=== PATIENT | female | born 1995 | race Caucasian/White ===

== ENCOUNTER 2020-10-02 11:19 | Inpatient (IN) ==
[2020-10-02] MEDS ORDERED: OXYTOCIN 30 UNITS/500 ML BAG IV PRN ×2 (11:41→13:09)
[2020-10-02 12:06] LABS: Hematocrit (blood only) 38.1 % (37-47); Hemoglobin 13.3 g/dL (12.0-16.0); Mean Corpuscular Hemoglobin 31.1 pg (25-34); Mean Corpuscular Hgb Conc 34.9 g/dL (32-36); Mean Corpuscular Volume 89.2 fL (80-100); Mean Platelet Volume 12.2 fL (7.4-10.4); Platelet Count 182 K/uL (130-400); RDW Coefficient of Variation 12.6 % (11.5-14.5); RDW Standard Deviation 40.9 fL (36.4-46.3); Red Blood Count 4.27 M/uL (4.2-5.4); White Blood Count 7.31 K/uL (4.8-10.8)
[2020-10-02] MEDS: LACTATED RINGER'S 1,000 ML IV PRN ×2 (13:12→20:19)
--- NOTE | 2020-10-02 13:15 | History & Physical Report ---
Date of Service October 02, 2020 Assessment & Plan (1) Pruritus of in third trimester: 25 y/o at 39 3/7 wga presents for IOL for suspected cholestasis VSS Fetus cat 1 Labor - Reviewed indication and plan for induction. Discussed galicia bulb to start induction, verbally consented for procedure and pt agreeable. 40cc galicia placed without difficulty, will start pit up to 10 while galicia is in. GBS neg Epidural PRN Admission and Anticipated Discharge Date Admission Date: October 02, 2020 History of Present Illness Chief Complaint: IOL for suspected cholestasis Primary Care Provider: Ebony Archuleta, DO 25 y/o at 39 3/7 w/ PERFECTO 10/06 by 1st tri US who presents for IOL for suspected cholestasis. Called in yesterday w/ c/o itching of palms/soles for few days. Yesterday Had LFTs drawn that showed AST was mildly elevated, ALT was wnl, BA are pending, NST was reactive yesterday as well. As BA can take up to a week to return and given GA, plan was to repeat LFTs this AM. This morning, AST continued to increase, continues to have itching. 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 Menarche 13, cycles q35d Denies hx STIs Denies hx abnl pap, last 05/2019 neg cytology Allergies Allergy/AdvReac Type Severity Reaction Status Date / Time No Known Allergies Allergy Verified 10/02/20 10:35 Home Medications Medication Instructions Recorded Confirmed Type PNV cmb#95-ferrous fumarate-FA 1 tab PO DAILY 12/26/19 10/02/20 History [] Patient History Medical History Anemia Varicella vaccination Surgical History No pertinent past surgical history Family History Grandmother (Paternal) Thyroid disease Mother No pertinent family history Father Diabetes Hypertension Denies family history of Ovarian cancer Breast cancer Colorectal cancer Social History Smoking Status: Never smoker Hx Alcohol Use: No Hx Substance Use: No Preferred Language: Sinhala Communication Ability: Effective Interchange Agent Required: No Beliefs That Will Affect Care: None marital status: marital status details: Dave Jensen (24) [phone] Current Living Situation: Spouse Current Living Situation Comment: lives with spouse, no pets current occupational status: student 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 [employer] Feels Safe at Home: Yes Safety Concerns: Feels Safe At This Time Assistive Devices: None Physical Exam Constitutional: WD/WN, vitals as above Respiratory: normal respiratory effort; no respiratory distress and no labored breathing Psychiatric: A+Ox3, euthymic affect Genitourinary: OB Exam Abdomen: + vertex (confirmed by US) and + estimated weight (6-7lb) Manual OB Exam: + cervical dilation fingertip, + cervical effacement 50% and + station high OB Exam Monitor Tracing: + external FHT monitor used, + external uterine monitor used (irregular ctx) and + category I (125/mod/+accel/-decel) Results & Data ([facility]) Vital Signs (Past 12 Hours) Vital Signs Temp Pulse Resp BP 10/02/20 11:52 98.2 F 71 20 118/81 10/02/20 11:32 71 118/81 10/02/20 11:30 98.2 F 20 Laboratory Results OB Labs: Blood Type AB Positive 03/02/20 Antibody Screen NEGATIVE 03/02/20 Hemoglobin 12.7 g/dL (12.0-16.0) 07/14/20 Hematocrit 37.9 % (37-47) 07/14/20 Mean Corpuscular Volume 86.2 fL (80-100) 03/02/20 Platelet Count 220 K/uL (130-400) 03/02/20 Rubella IgG Antibody Immune (Immune) 03/02/20 Rapid Plasma Reagin Nonreactive (Nonreactive) 03/02/20 Hepatitis B Surface Antigen Neg (Neg) 03/02/20 HIV (1&2) Ab and P24 Ag, 4th Gener Neg (Neg) 03/02/20 Glucose 1 Hour 50 gm Load 138 mg/dl (70-130) H 07/14/20 OB Optional Labs: Chlamydia trachomatis RNA NOT DETECTED (NOT DETECTED) 03/02/20 Neisseria gonorrhoeae RNA NOT DETECTED (NOT DETECTED) 03/02/20 Labs Reviewed: declined cf/sma--akh low risk cfDNA declines AFP GBS neg COVID neg Diagnostic Findings Ant placenta Code Status & VTE Plan VTE Prophylaxis Plan VTE Prophylaxis will be ordered: Yes Coding Level of Care Code None Diagnoses Pruritus of in third trimester O99.713; L29.9
[2020-10-02] MEDS ORDERED: ePHEDrine sulfate 50 MG/ML AMP ONE (20:22)
[2020-10-02] MEDS ORDERED: BUPIVACAINE 0.25% 30 ML VIAL ONE ×2 (20:22→22:15)
[2020-10-02] MEDS ORDERED: SODIUM CHLORIDE 0.9% INJ 10 ML VIAL ONE (20:22)
[2020-10-02] MEDS ORDERED: fentaNYL citrate 100 MCG/2 ML VIAL ONE (20:22)
[2020-10-02] MEDS ORDERED: fentaNYL 2MCG/ML ROPIVACAINE 1.25MG/ML 100 ML BAG EPI ONE (20:23)
--- NOTE | 2020-10-02 20:31 | Labor Progress Brief Note ---
Date of Service October 02, 2020 Assessment & Plan (1) Pruritus of in third trimester: 25 y/o at 39 3/7 wga presents for IOL for suspected cholestasis VSS Fetus cat 1 Labor - Olmos bulb was sitting in vagina and removed, exam demonstrates good progress. Pit at 10, tito well. Plan to arom after epidural GBS neg Epidural desired Admission and Anticipated Discharge Date Admission Date: October 02, 2020 Physical Exam Genitourinary: Manual OB Exam: + cervical dilation (4-5), + cervical effacement 70% and + station -2 OB Exam Monitor Tracing: + external FHT monitor used, + external uterine monitor used (q2-5min) and + category I (130/mod/+accel/-decel) Results & Data ([facility]) Vital Signs (Past 12 Hours) Vital Signs Temp Pulse Resp BP 10/02/20 19:54 65 130/88 10/02/20 19:30 18 10/02/20 19:03 97.9 F 18 10/02/20 19:01 57 L 123/77 10/02/20 19:00 97.9 F 18 10/02/20 18:45 69 133/82 10/02/20 16:06 56 L 119/84 10/02/20 15:02 74 20 124/89 10/02/20 14:02 61 18 104/67 10/02/20 13:13 67 124/82 10/02/20 11:52 98.2 F 71 20 118/81 10/02/20 11:32 71 118/81 10/02/20 11:30 98.2 F 20 Coding Level of Care Code None Diagnoses Pruritus of in third trimester O99.713; L29.9
--- NOTE | 2020-10-02 21:07 | Anesthesiology Consultation ---
Date of Service October 02, 2020 Assessment & Plan (1) Encounter for pre-operative examination: Chart Review Chart Review: Acceptable Risk for Labor Epidural Consults Requested none ASA ASA2 Proposed Anesthesia Anesthesia Type: Labor Epidural Risk / Benefits Reviewed With: PT / POA / Parent / Guardian, Accepts Plan and Informed Consent Obtained History Height/Weight Height: 5 ft 6 in Weight: 66.678 kg Allergies Allergy/AdvReac Type Severity Reaction Status Date / Time No Known Allergies Allergy Verified 10/02/20 10:35 Medications Home Medications Medication Instructions Recorded Confirmed Last Taken PNV cmb#95-ferrous fumarate-FA 1 tab PO DAILY 12/26/19 10/02/20 10/01/20 23:00 [] Active Medications Generic Name Dose Route Start Last Admin Trade Name Freq PRN Reason Stop Dose Admin Lactated Ringer's 1,000 mls @ 125 mls/hr 10/02/20 11:41 10/02/20 20:38 Lr IV 10/04/20 11:40 125 mls/hr .Q8H PRN Infusion L&D Protocol Protocol Oxytocin 30 units in 500 mls @ 10 mls/hr 10/02/20 13:09 10/02/20 16:00 Pitocin IV 10/04/20 13:08 0.6 units/hr .Q24H PRN 10 mls/hr Labor Induction/Augmentation Titration Protocol 0.6 UNITS/HR Past Medical History Medical History Anemia Varicella vaccination Exercise / Class Metabolic Activity II 4-5 Yardwork/Stairs/Walk up hill Past Family History Family History Grandmother (Paternal) Thyroid disease Mother No pertinent family history Father Diabetes Hypertension Denies family history of Ovarian cancer Breast cancer Colorectal cancer Past Surgical History Surgical History No pertinent past surgical history Past Anesthesia History No Hx of Anesthesia Complications and No Family Hx of Anesthesia Complications History of PONV No Hx of PONV and No Hx of Motion Sickness Social History Smoking Status: Never smoker Hx Alcohol Use: No Hx Substance Use: No Physical Exam Vital Signs Last Vital Signs Temp 98.1 F 10/02/20 20:48 Pulse 65 10/02/20 19:54 Resp 18 10/02/20 21:00 BP 130/88 10/02/20 19:54 ENMT Mouth: no dentition abnormality Thyromental Distance: > or= 3.5 Finger Breadths Mallampati Class: II Neck normal visual inspection Respiratory normal respiratory effort Auscultation: lungs clear to auscultation bilaterally Cardiovascular Rate/Rhythm: regular rate and regular rhythm Testing Laboratory Results 10/02/20 11:52
[2020-10-02] MEDS ORDERED: fentaNYL 2MCG/ML ROPIVACAINE 1.25MG/ML 100 ML BAG EPI PRN (21:24)
[2020-10-02] MEDS ORDERED: diphenhydrAMINE 50 MG/ML VIAL IV PRN (21:24)
[2020-10-02] MEDS ORDERED: ONDANSETRON INJ 2 MG/ML 2 ML VIAL IV PRN (21:24)
[2020-10-02] MEDS ORDERED: ePHEDrine sulfate 50 MG/ML AMP IV PRN (21:24)
[2020-10-02] MEDS ORDERED: NALOXONE HCL 1 MG in SODIUM CHLORIDE 0.9% 1000ML 1,000 ML IV PRN (21:24)
[2020-10-02] MEDS ORDERED: NALOXONE HCL 0.4 MG/1 ML VIAL/CARP IV PRN (21:24)
--- NOTE | 2020-10-03 00:35 | Delivery Summary ---
Vaginal Delivery Summary Date of Service October 03, 2020 Vaginal Delivery Summary and 1st Degree LAC (and right labial) PREOPERATIVE DIAGNOSIS: 1. Single intrauterine at 39 4/7 2. Suspected cholestasis of POSTOPERATIVE DIAGNOSIS: 1. Single intrauterine at 39 4/7 2. Suspected cholestasis of 3. Delivered PROCEDURE: 1. Normal spontaneous vaginal delivery. SURGEON: Benita Watson MD ANESTHESIA: Epidural. ESTIMATED BLOOD LOSS: 300 mL FLUIDS: Continuous LR. URINE OUTPUT: None. COMPLICATIONS: None. CONDITION: Stable. INDICATIONS: 25 y/o at 39 4/7 who presents for IOL for suspected cholestasis. Called in two days ago w/ c/o itching of palms/soles for few days. Yesterday Had LFTs drawn that showed AST was mildly elevated, ALT was wnl, BA are pending, NST was reactive yesterday as well. As BA can take up to a week to return and given GA, plan was to repeat LFTs yesterday AM. At that time, AST continued to increase and pt continued to have itching. She was counseled that with the elevated LFTs and symptoms, there is high concern for cholestasis and with her GA, would recommend IOL. Induction was begun yesterday afternoon with galicia bulb and pitocin. Following galicia bulb expulsion, pitocin was titrated. She received an epidural for pain control and underwent SROM. She continued to progress to complete and desired to push. FINDINGS: A viable female , with Apgars of 8 and 9 at 1 and 5 minutes resp ectively. SPECIMEN: Cord blood, placenta OPERATIVE REPORT: The patient progressed to 10 cm, 100% effaced and +2 station, pushed over intact perineum with anesthesia to deliver a viable female infant, Apgars as above. Head of delivered in CHANDNI position. No nuchal cord was present. Body and shoulders were delivered without difficulty. was delivered to maternal abdomen and nursing staff. Delayed cord clamping was performed for 60 seconds. Cord was clamped and cut. Cord blood was obtained. Placenta delivered spontaneously intact with 3-vessel cord. IV oxytocin and fundal massage were given for excellent hemostasis. Vagina, cervix, perineum, and placenta were inspected. A first degree and right labial laceration were noted and repaired in the usual fashion with 3-0 and 4-0 Vicryl. Sponge and needle counts correct x2. No sponges were left behind. Mother and stable in immediate period. [facility] Vaginal Delivery Charge Vaginal Delivery Codes: 38441 global code for the antepartum, delivery, and post- Delivery Type Details: and 1st Degree LAC (and right labial)
[2020-10-03] MEDS ORDERED: OXYTOCIN 30 UNITS/500 ML BAG IV PRN (00:37)
[2020-10-03] MEDS ORDERED: ACETAMINOPHEN 325 MG TAB PO PRN (00:37)
[2020-10-03] MEDS ORDERED: SUPERCREAM 0.870% 15 GM JAR EXT PRN (00:37)
[2020-10-03] MEDS ORDERED: BENZOCAINE 20% AER SPR 82.5 GM CAN EXT PRN (00:37)
[2020-10-03] MEDS ORDERED: DIPHTHERIA/TETANUS/PERTUSSIS 0.5 ML SYR/VIAL IM ONE (00:37)
[2020-10-03] MEDS ORDERED: bisacodyL 10 MG SUPP PR PRN (00:37)
[2020-10-03] MEDS ORDERED: HYDROCORTISONE ACETATE 25 MG SUPP PR PRN (00:37)
--- NOTE | 2020-10-03 01:16 | Anesthesia Procedure Note ---
Date of Service October 03, 2020 Anesthesia Post Epidural Note Vital Signs Vital Signs: Temp Pulse Resp BP Pulse Ox 37.0 C 52 L 18 121/69 99 10/03/20 00:30 10/03/20 01:14 10/03/20 01:00 10/03/20 01:14 10/03/20 00:01 Pain Intensity Left Lower Abdomen: Pain Intensity: 4 Notes Mental Status: alert / awake / arousable and participated in evaluation Patient Amnestic to Procedure: Yes Nausea / Vomiting: adequately controlled Pain: adequately controlled Airway Patency, RR, SpO2: stable & adequate BP & HR: stable & adequate Hydration State: stable & adequate Anesthetic Complications: no major complications apparent and Pt Satisfied with anesthetic care
[2020-10-03] MEDS: DOCUSATE SODIUM 100 MG CAP PO SCH ×2 (08:35→20:08)
[2020-10-03] MEDS: IBUPROFEN 600 MG TAB PO PRN ×3 (08:35→18:02)
[2020-10-03] MEDS: PRENATAL VITAMIN 1 TAB PO SCH (08:35)
[2020-10-04] MEDS: IBUPROFEN 600 MG TAB PO PRN ×2 (00:23→08:09)
[2020-10-04] MEDS: DOCUSATE SODIUM 100 MG CAP PO SCH (08:09)
[2020-10-04] MEDS: PRENATAL VITAMIN 1 TAB PO SCH (08:09)
--- NOTE | 2020-10-04 08:12 | Obstetrical Progress Note ---
Date of Service October 04, 2020 Assessment & Plan (1) Vaginal delivery: Patient doing well. Routine care. Desires d/c. Instructions given. Day #:: 1 Subjective Ambulation: ambulating normally Voiding: no voiding problems Passing Gas:: Yes Diet Tolerance:: regular diet Lochia:: Small Feeding Type:: breast feeding Notes no further itching of hands or feet. Physical Exam Constitutional WD/WN, vitals as above Respiratory normal respiratory effort, lungs clear to auscultation Cardiovascular RRR, no murmur, no edema Extremities: no calf tenderness and no edema Gastrointestinal (Abdomen) soft, nt, nd, ff/ nt at u Psychiatric A+Ox3, euthymic affect Results & Data ([facility]) Vital Signs (Past 12 Hours) Vital Signs Temp Pulse Resp BP Pulse Ox 10/04/20 00:15 36.4 C L 50 L 16 138/84 99
[2020-10-04] MEDS ORDERED: bisacodyL 5 MG TABEC PO SCH (20:00)
== END 2020-10-04 13:50 | disposition home or self-care (01) | DRG 805 ==
LOC: 4S1 11:19 → 4S2 10-03 03:30

== ENCOUNTER 2022-11-19 10:20 | Inpatient (IN) ==
[2022-11-19] MEDS ORDERED: OXYTOCIN 30 UNITS/500 ML BAG IV PRN ×2 (10:47→14:38)
[2022-11-19] MEDS ORDERED: LIDOCAINE 1% LOCAL 20 ML VIAL INFIL PRN (10:47)
[2022-11-19] MEDS: LACTATED RINGER'S 1,000 ML IV PRN ×2 (10:56→12:07)
[2022-11-19 11:22] LABS: Hematocrit (blood only) 38.6 % (37.0-47.0); Hemoglobin 13.5 g/dl (12.0-16.0); Mean Corpuscular Hemoglobin 30.1 pg (25.0-34.0); Mean Corpuscular Volume 86.2 fL (80.0-100.0); Mean Platelet Volume 11.9 fL (9.4-12.4); Platelet Count 217 K/uL (130-400); RDW Standard Deviation 40.4 fL (36.4-46.3); Red Blood Count 4.48 M/uL (4.20-5.40); White Blood Count 13.24 K/ul (4.8-10.8)
[2022-11-19] MEDS ORDERED: ePHEDrine sulfate 50 MG/ML AMP ONE (11:27)
[2022-11-19] MEDS ORDERED: LIDOCAINE 2%/EPINEPHRINE 1:200,000 20 ML PF ONE (11:28)
[2022-11-19] MEDS ORDERED: fentaNYL 2MCG/ML ROPIVACAINE 1.25MG/ML 100 ML BAG EPI ONE (11:28)
[2022-11-19] MEDS ORDERED: fentaNYL citrate PF 100 MCG/2 ML VIAL ONE (11:28)
[2022-11-19] MEDS ORDERED: SODIUM CHLORIDE 0.9% PF INJ 10 ML VIAL ONE (11:28)
[2022-11-19] MEDS ORDERED: BUPIVACAINE 0.25% PF 30 ML VIAL ONE (11:28)
--- NOTE | 2022-11-19 12:02 | Anesthesiology Consultation ---
Date of Service November 19, 2022 Assessment & Plan Chart Review Chart Review: Acceptable Risk for Surgery, Patient NOT seen in Pre Admission Testing and Acceptable Risk for Labor Epidural Consults Requested none ASA ASA2 Proposed Anesthesia Anesthesia Type: Labor Epidural and CSE Risk / Benefits Reviewed With: PT / POA / Parent / Guardian, Accepts Plan and Informed Consent Obtained History Height/Weight Height: 5 ft 6 in Weight: 64.864 kg Allergies Allergy/AdvReac Type Severity Reaction Status Date / Time No Known Allergies Allergy Verified 11/16/22 11:39 Medications Home Medications Medication Instructions Recorded Confirmed Last Taken vit no.95-ferrous 1 tab PO DAILY 12/26/19 11/19/22 11/19/22 fumarate 28 mg-folic acid 800 mcg tablet () Active Medications Generic Name Dose Route Start Last Admin Trade Name Freq PRN Reason Stop Dose Admin Lactated Ringer's 1,000 mls @ 125 mls/hr 11/19/22 10:47 11/19/22 11:27 Lr IV 11/21/22 10:46 999 mls/hr .Q8H PRN Infusion L&D Protocol Protocol NPO Date Last Intake of Fluids: 11/19/22 Time Last Intake of Fluids: 10:00 Date Last Intake of Solids: 11/19/22 Time Last Intake of Solids: 10:00 Past Medical History Medical History Anemia History of cholestasis during Varicella vaccination Exercise / Class Metabolic Activity II 4-5 Yardwork/Stairs/Walk up hill Past Family History Family History Grandmother (Paternal) Thyroid disease Mother No pertinent family history Father Diabetes Hypertension Grandfather (Paternal) Deep vein thrombosis Denies family history of Ovarian cancer Breast cancer Colorectal cancer Past Surgical History Surgical History No pertinent past surgical history Past Anesthesia History No Hx of Anesthesia Complications and No Family Hx of Anesthesia Complications History of PONV No Hx of PONV and No Hx of Motion Sickness Social History Smoking Status: Never smoker Do You Dip or Chew Tobacco: No Hx Alcohol Use: No Hx Substance Use: No substance use type: does not use Physical Exam Vital Signs Last Vital Signs Temp 36.5 C 11/19/22 11:55 Pulse 59 L 11/19/22 11:59 Resp 20 11/19/22 11:55 BP 101/61 11/19/22 11:56 Pulse Ox 98 11/19/22 11:59 Constitutional no acute distress ENMT Mouth: no dentition abnormality Thyromental Distance: < 3.5 Finger Breadths Mallampati Class: II Neck normal visual inspection and trachea midline; neck extension not limited Respiratory normal respiratory effort Auscultation: lungs clear to auscultation bilaterally Cardiovascular Rate/Rhythm: regular rate and regular rhythm Heart Sounds: no murmur Vessels: no carotid bruit Musculoskeletal Spine: lumbar spine normal to inspection; normal cervical ROM and no pain with cervical ROM Extremities: full ROM of extremities Neurologic moves all extremities Motor/Sensory: no sensory deficit Psychiatric Orientation: alert and oriented x 3 Testing Laboratory Results 11/19/22 10:59
[2022-11-19] MEDS ORDERED: PROMETHAZINE HCL 25 MG in SODIUM CHLORIDE 0.9% 50 ML IV PRN (12:33)
[2022-11-19] MEDS ORDERED: LIDOCAINE 2% MPF LOCAL 5 ML VIAL EPI PRN (12:33)
[2022-11-19] MEDS ORDERED: BUPIVACAINE 0.25% PF 30 ML VIAL EPI STA (12:33)
[2022-11-19] MEDS ORDERED: SODIUM CHLORIDE 0.9% PF INJ 10 ML VIAL EPI PRN (12:33)
[2022-11-19] MEDS ORDERED: fentaNYL citrate PF 100 MCG/2 ML VIAL EPI STA (12:33)
[2022-11-19] MEDS ORDERED: BUPIVACAINE 0.25% PF 30 ML VIAL EPI PRN (12:33)
[2022-11-19] MEDS ORDERED: LIDOCAINE 2%/EPINEPHRINE 1:200,000 20 ML PF EPI STA (12:33)
[2022-11-19] MEDS ORDERED: fentaNYL citrate PF 100 MCG/2 ML VIAL EPI PRN (12:33)
[2022-11-19] MEDS ORDERED: SODIUM CHLORIDE 0.9% PF INJ 10 ML VIAL EPI STA (12:33)
[2022-11-19] MEDS ORDERED: fentaNYL 2MCG/ML ROPIVACAINE 1.25MG/ML 100 ML BAG EPI PRN (12:33)
[2022-11-19] MEDS ORDERED: diphenhydrAMINE 50 MG/ML VIAL IV PRN (12:33)
[2022-11-19] MEDS ORDERED: NALBUPHINE HCL INJ 10 MG/ML AMP IV PRN (12:33)
[2022-11-19] MEDS ORDERED: ONDANSETRON INJ 2 MG/ML 2 ML VIAL IV PRN (12:33)
[2022-11-19] MEDS ORDERED: ROPIVACAINE 0.5% PF 5 MG/ML 20 ML VIAL EPI PRN (12:33)
[2022-11-19] MEDS ORDERED: ePHEDrine sulfate 50 MG/ML AMP IV PRN (12:33)
[2022-11-19] MEDS ORDERED: NALOXONE HCL 0.4 MG/1 ML VIAL/CARP IV PRN (12:33)
[2022-11-19] MEDS ORDERED: NALOXONE HCL 1 MG in SODIUM CHLORIDE 0.9% 1000ML 1,000 ML IV PRN (12:33)
--- NOTE | 2022-11-19 12:51 | History & Physical Report ---
Date of Service November 19, 2022 Assessment & Plan (1) Normal labor: Plan pt has been admitted. epidural now in place, fhts now categ 1, ? variables with ctx, not traced well. cx per nurse. anticip . Admission and Anticipated Discharge Date Admission Date: November 19, 2022 History of Present Illness Chief Complaint: labor Primary Care Provider: Ebony MatiasAmber Geremias, DO 27yo at 39+wks ega presents to L&D with cc of srom and contractions. She notes leaking clear fluid, after onset of ctx q2-4min. Arrived in L&D and gross srom noted and 3cm and admitted in labor. She then requested epidural and I was called to see pt after decel post epidural. No vb. PNC uncomplicated, prior c/b cholestasis, PNL rh pos, ri, gbs neg OBH: x 1 GYNH: nl paps no stds Allergies Allergy/AdvReac Type Severity Reaction Status Date / Time No Known Allergies Allergy Verified 11/16/22 11:39 Home Medications Medication Instructions Recorded Confirmed Type vit no.95-ferrous 1 tab PO DAILY 12/26/19 11/19/22 History fumarate 28 mg-folic acid 800 mcg tablet () Patient History Medical History Anemia History of cholestasis during Varicella vaccination Surgical History No pertinent past surgical history Family History Grandmother (Paternal) Thyroid disease Mother No pertinent family history Father Diabetes Hypertension Grandfather (Paternal) Deep vein thrombosis Denies family history of Ovarian cancer Breast cancer Colorectal cancer Social History (Updated 04/06/22 @ 10:52 by Leida Calvillo) Smoking Status: Never smoker Do You Dip or Chew Tobacco: No; Hx Alcohol Use: No Hx Substance Use: No Preferred Language: Salvadorean Communication Ability: Effective Audio Visual Coordinator Required: No Beliefs That Will Affect Care: None marital status: marital status details: Dave Jensen (26) [phone] Current Living Situation: Spouse Current Living Situation Comment: Lives with tenant roomate current occupational status: employed 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 Other Information That Helps Us Care for You: No Feels Safe at Home: Yes Safety Concerns: Feels Safe At This Time Assistive Devices: Glasses Review of Systems as per Subjective / HPI Physical Exam Constitutional: WD/WN, vitals as above Respiratory: normal respiratory effort, lungs clear to auscultation Cardiovascular: Rate/Rhythm: regular rate and regular rhythm Gastrointestinal (Abdomen): soft gravid nt efw 7-8# Musculoskeletal: no edema nontender calves Neurologic: grossly normal Psychiatric: A+Ox3, euthymic affect Genitourinary: Manual OB Exam: + cervical dilation 6 cm and + cervical effacement (per nurse) 100% OB Exam Monitor Tracing: + external FHT monitor used, + external uterine monitor used (q2-3), + category I, + category II, + normal FHT variability and + variable decelerations fhts after epidural with decel to 80s, spont resolved to baseline with good variability, pos change, o2 and ivf. bp slightly lower than baseline after epidural but recovering spont Results & Data Vital Signs (Past 12 Hours) Vital Signs Temp Pulse Resp BP Pulse Ox 11/19/22 11:55 97.7 F 20 11/19/22 11:08 16 11/19/22 12:44 50 L 100 11/19/22 12:41 52 L 96/53 L 11/19/22 12:39 53 L 98/53 L 100 11/19/22 12:37 51 L 97/52 L 11/19/22 12:35 54 L 110/58 L 11/19/22 12:34 56 L 99 11/19/22 12:33 55 L 96/52 L 11/19/22 12:31 54 L 103/64 11/19/22 12:30 52 L 102/59 L 11/19/22 12:29 56 L 105/63 100 11/19/22 12:27 51 L 106/61 11/19/22 12:24 59 L 100 11/19/22 12:25 56 L 108/63 11/19/22 12:23 60 108/60 11/19/22 12:21 63 117/57 L 11/19/22 12:19 57 L 100 11/19/22 12:17 55 L 113/73 11/19/22 12:14 61 100 11/19/22 12:13 52 L 109/71 11/19/22 12:11 56 L 117/74 11/19/22 12:09 63 100 11/19/22 12:07 54 L 119/73 11/19/22 12:04 56 L 99 11/19/22 12:01 66 85 L 11/19/22 11:59 59 L 24 98 11/19/22 11:56 57 L 101/61 11/19/22 11:54 91 11/19/22 11:54 64 11/19/22 11:54 64 92 11/19/22 11:49 53 L 100 11/19/22 11:44 51 L 100 11/19/22 11:30 22 11/19/22 11:30 22 11/19/22 10:35 20 11/19/22 10:35 97.9 F 20 11/19/22 10:30 65 135/81 Coding Level of Care Code None Diagnoses Normal labor O80; Z37.9
--- NOTE | 2022-11-19 14:14 | Delivery Summary ---
Vaginal Delivery Summary Date of Service November 19, 2022 Vaginal Delivery Summary The patient dilated to complete and pushed to deliver a viable female Apgars 8 and 9 via over intact perineum. Loose nuchal x 1 reduced. Mouth and nose bulb suctioned at perineum. Shoulders and body delivered with ease. was vigorous and crying at . Cord clamped at 30 seconds of life and to maternal abdomen where the cord was then doubly clamped and cut. Placenta delivered spontaneously and intact, three-vessel cord. Hemostasis achieved with dilute pitocin and uterine massage and drainage of the bladder for approximately 100 cc under sterile conditions. Cervix and sulci intact. Small periclitoral laceration was bleeding and so figure of eight suture of 4-0 vicryl placed for excellent hemostasis. EBL 300 cc. Mother and baby stable in recovery. [facility] Vaginal Delivery Charge Delivery Type Details:
--- NOTE | 2022-11-19 14:30 | Communication Note ---
Date of Service: November 19, 2022 @ 12:12 pm,while attempting to tape the epidural catheter down, I inadvertently pulled out the epidural catheter. I opened a new kit, using a new Tuohy needle I entered the epidural space w/ + LORTS atraumatically. I attempted to advance the epidural cath. , but met resistance. I advanced the Tuohy needle a small distance and breached the dural covering ,hence a wet tap w/+ CSF. I pulled the Tuohy needle back until CSF flow stopped. I then advanced the epidural catheter 8-10 cm w/o incident. I aspirated the cath. and no csf or blood was present. I performed a test dose w/ lido/epi and this was neg. I have explained to the patient the significance of this. If she develops a PDPH w/in the next 24 hours , I will treat it w/ a blood patch. I have directed the RN's to leave the epidural cath. in for 24 hours, in case a PDPH develops and I will use it to inject blood through for the blood patch.
[2022-11-19] MEDS ORDERED: oxyCODONE/ACETAMINOPHEN 5mg/325mg TAB PO PRN (14:38)
[2022-11-19] MEDS ORDERED: BENZOCAINE 20% AER SPR 82.5 GM CAN EXT PRN (14:38)
[2022-11-19] MEDS ORDERED: HYDROCORTISONE ACETATE 25 MG SUPP PR PRN (14:38)
[2022-11-19] MEDS ORDERED: ACETAMINOPHEN 325 MG TAB PO PRN (14:38)
[2022-11-19] MEDS ORDERED: OXYTOCIN 20 UNITS in LACTATED RINGER'S 1,000 ML IV SCH (14:38)
--- NOTE | 2022-11-19 17:52 | Anesthesia Procedure Note ---
Date of Service November 19, 2022 Anesthesia Post Epidural Note Vital Signs Vital Signs: Temp Pulse Resp BP Pulse Ox 36.6 C 53 L 20 121/66 100 11/19/22 17:00 11/19/22 16:26 11/19/22 17:00 11/19/22 16:26 11/19/22 14:09 Notes Mental Status: alert / awake / arousable Nausea / Vomiting: adequately controlled Pain: adequately controlled Airway Patency, RR, SpO2: stable & adequate BP & HR: stable & adequate Hydration State: stable & adequate Neuraxial Anesthesia: was administered and sensory block is resolving Anesthetic Complications: no major complications apparent Epidural: Removed without complications and With tip intact
--- NOTE | 2022-11-19 17:52 | Anesthesia Procedure Note ---
Anesthesia Procedure Note Epidural Blood Patch Procedure Note Vital Signs: BP 121/66 RR-18 Temp-36.4 SPO2 % 100 HR-53 Date of procedure: 11/19/22 Time out completed: Yes Premedication: None Surgical Prep: Hand hygeine: Soap and water Equipment/Supplies: Cap, Mask, Sterile gloves and Sterile procedures used Skin prep: Chloraprep and 70% alcohol Venous access site: Other (left wrist) Procedure Summary: Patient w/ in situ epidural catheter from this afternoon,12:25 pm placement. Pt had wet tap and I told her if PDPH develops I will use the epidural catheter to inject the blood through for epidural blood patch. Pt now w/ PDPH. Pt placed supine. Using sterile technique,Left IV cleaned w/ a lcohol and using sterile gloves and syringes, a total of 20 ml blood was drawn off in 5 ml aliquots after the iv was drawn off and wasted, then the epidural catheter was injected w/ blood (5 ML x 4) for a total of 20 ml. Epidural catheter was then removed w/ tip intact. Pt to remain supine x 30 minutes. Post-Procedure: Pt hemodynamically stable, Pt tolerates well and No complications
[2022-11-19] MEDS: IBUPROFEN 600 MG TAB PO PRN (21:18)
[2022-11-19] MEDS: DOCUSATE SODIUM 100 MG CAP PO SCH (21:18)
[2022-11-20] MEDS: IBUPROFEN 600 MG TAB PO PRN ×3 (03:52→13:10)
[2022-11-20] MEDS ORDERED: PRENATAL VITAMIN 1 TAB PO SCH (08:00)
--- NOTE | 2022-11-20 08:41 | Obstetrical Progress Note ---
Date of Service November 20, 2022 Assessment & Plan (1) exam: Plan stable, routine care. desires dc home, instructions reviewed. f/u 6 wk pp check. rh pos, ri, . Day #:: 1 Subjective Ambulation: ambulating normally Voiding: no voiding problems Diet Tolerance:: regular diet Lochia:: Small Feeding Type:: breast feeding no concerns Constitutional: + as per Subjective / HPI Physical Exam Constitutional WD/WN, vitals as above Respiratory normal respiratory effort, lungs clear to auscultation Cardiovascular Rate/Rhythm: regular rate and regular rhythm Gastrointestinal (Abdomen) Inspection/Auscultation: abdomen normal to inspection Percussion/Palpation: abdomen soft Fundus firm 2cm down Musculoskeletal nt calves no edema Neurologic grossly normal Psychiatric A+Ox3, euthymic affect Results & Data Vital Signs (Past 12 Hours) Vital Signs Temp Pulse Resp BP Pulse Ox O2 Del Method 11/20/22 03:40 97.9 F 61 16 106/68 98 Room Air 11/19/22 23:05 98.2 F 55 L 16 110/69 96 Room Air 11/19/22 21:15 98.4 F 60 16 128/81 99 Room Air
[2022-11-20] MEDS ORDERED: DIPHTHERIA/TETANUS/PERTUSSIS Vaccine (Tdap, Age 7+yrs) 0.5mL SYR/VL IM ONE (09:00)
[2022-11-20] MEDS: DOCUSATE SODIUM 100 MG CAP PO SCH (09:07)
[2022-11-20] MEDS ORDERED: bisacodyL 5 MG TABEC PO SCH (20:00)
== END 2022-11-20 14:45 | disposition home or self-care (01) | DRG 806 ==
LOC: OPB 10:20 → 4S1 10:21 → 4E2 17:00